=== PATIENT | female | born 2000 | race Caucasian/White ===

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

== ENCOUNTER 2021-10-03 13:08 | Emergency (ER) | payer BC, OTHER ==
[2021-10-03 14:19] VITALS: BP 104/60; PULSE 60; TEMP 98.6; BMI 17.6
== END 2021-10-03 16:23 | disposition home or self-care (01) ==
LOC: JER 13:08
DX: F41.9 Anxiety disorder, unspecified (principal)
CPT/HCPCS: 99281-25

== ENCOUNTER 2022-05-17 06:40 | Observation (INO) | payer BC, OTHER ==
[2022-05-17] MEDS ORDERED: FAMOTIDINE 20 MG/50 ML IVPB 20 MG/50 ML MG IVPB ONE ×2 (07:38→07:44)
[2022-05-17] MEDS ORDERED: SODIUM CHLORIDE 0.9% 500 ML INFUS.BAG IV ONE (07:38)
[2022-05-17] MEDS ORDERED: ONDANSETRON 4 MG/2 ML VIAL IVPUSH ONE ×2 (07:38→12:09)
[2022-05-17] MEDS ORDERED: MAG HYDROX/AL HYDROX/SIMETH 30 ML UNIT-DOSE CUP PO ONE (07:38)
[2022-05-17] MEDS ORDERED: MAG HYDROX/AL HYDROX/SIMETH 30 ML UNIT-DOSE CUP ONE (07:43)
[2022-05-17] MEDS ORDERED: ONDANSETRON 4 MG/2 ML VIAL ONE ×2 (07:44→12:41)
[2022-05-17] MEDS ORDERED: SUCRALFATE 1 GM TABLET (FP) ONE (09:16)
[2022-05-17] MEDS: SUCRALFATE 1 GM/10 ML UNIT DOSE CUPS PO SCH ×2 (09:21→22:25)
[2022-05-17 09:31] LABS: BASO % 0.3 % (0-2.0); EOS % 0.4 % (0-4.5); HEMATOCRIT 37.5 % (32.4-45.2); HEMOGLOBIN 12.4 GM/dL (10.7-15.3); LYMPH % 4.9 % (8-40); MCH 27.1 pg (25.7-33.7); MCHC 33.2 g/dl (32.0-36.0); MEAN CELL VOLUME 81.7 fl (80-96); MEAN PLT VOLUME 8.1 fl (7.5-11.1); MONO % 6.1 % (3.8-10.2); NEUT % 88.3 % (42.8-82.8); PLATELET COUNT 283 10^3/uL (134-434); RBC 4.59 M/mm3 (3.60-5.2); RDW 14.7 % (11.6-15.6); WHITE BLOOD COUNT 11.5 K/mm3 (4.0-10.0)
[2022-05-17] MEDS ORDERED: ACETAMINOPHEN 1000 MG/100 ML BAG IVPB ONE (11:03)
[2022-05-17] MEDS ORDERED: ACETAMINOPHEN INJECTION 100 ML IVPB ONE (11:04)
[2022-05-17 11:36] LABS: CALCIUM 9.7 mg/dL (8.5-10.1)
[2022-05-17 11:37] LABS: ALBUMIN 4.3 g/dl (3.4-5.0); BLOOD UREA NITROGEN 10.8 mg/dL (7-18)
[2022-05-17 11:40] LABS: CREATININE 0.7 mg/dL (0.55-1.3)
[2022-05-17 11:41] LABS: TOT PROT 7.5 g/dl (6.4-8.2)
[2022-05-17 12:43] LABS: PH,URINE 5.5 (5.0-8.0); URINE APPEARANCE CLEAR; URINE BILIRUBIN NEGATIVE (NEGATIVE); URINE COLOR YELLOW; URINE GLUCOSE (UA) NEGATIVE (NEGATIVE); URINE KETONE NEGATIVE (NEGATIVE); URINE LEUK ESTERASE NEGATIVE (NEGATIVE); URINE NITRITE NEGATIVE (NEGATIVE); URINE PROTEIN NEGATIVE (NEGATIVE); URINE UROBILINOGEN 0.2 mg/dL (0.2-1.0)
[2022-05-17] MEDS ORDERED: HALOPERIDOL LACTATE 5 MG/ML IM ONE ×2 (13:55→13:56)
[2022-05-17] MEDS ORDERED: ONDANSETRON 4 MG/2 ML VIAL IVPUSH PRN (16:07)
[2022-05-17] MEDS ORDERED: LACTATED RINGERS SOLUTION 1,000 ML IV SCH (16:15)
[2022-05-17] MEDS ORDERED: MAG HYDROX/AL HYDROX/SIMETH 30 ML UNIT-DOSE CUP PO PRN (16:50)
[2022-05-17 19:40] VITALS: RESP 18
[2022-05-17 21:01] VITALS: BMI 16.4
[2022-05-18] MEDS: ENOXAPARIN NA (PORCINE) 40 MG/0.4 ML DISP.SYRIN SQ SCH ×2 (09:56)
[2022-05-18] MEDS: SUCRALFATE 1 GM/10 ML UNIT DOSE CUPS PO SCH (09:57)
[2022-05-18] MEDS ORDERED: PANTOPRAZOLE 40 MG TABLET PO SCH (10:00)
[2022-05-18 10:41] LABS: BASO % 0.6 % (0-2.0); EOS % 5.9 % (0-4.5); HEMATOCRIT 31.5 % (32.4-45.2); HEMOGLOBIN 10.6 GM/dL (10.7-15.3); MCH 27.6 pg (25.7-33.7); MCHC 33.6 g/dl (32.0-36.0); MEAN PLT VOLUME 8.2 fl (7.5-11.1); MONO % 7.5 % (3.8-10.2); PLATELET COUNT 248 10^3/uL (134-434); RBC 3.85 M/mm3 (3.60-5.2); RDW 14.7 % (11.6-15.6); WHITE BLOOD COUNT 6.5 K/mm3 (4.0-10.0)
[2022-05-18 10:46] LABS: INR 1.11 (0.83-1.09); PROTHROMBIN TIME (PATIENT) 12.8 SEC (9.7-13.0)
[2022-05-18 10:49] LABS: ACTIVATED PTT 29.5 SECONDS (25.2-36.5)
[2022-05-18 11:13] LABS: CALCIUM 8.5 mg/dL (8.5-10.1)
[2022-05-18 11:14] LABS: BLOOD UREA NITROGEN 6.8 mg/dL (7-18); MAGNESIUM 1.9 mg/dL (1.8-2.4)
[2022-05-18 11:17] LABS: CREATININE 0.6 mg/dL (0.55-1.3)
[2022-05-18 11:18] LABS: BILIRUBIN,TOTAL 1.1 mg/dL (0.2-1); TOT PROT 5.8 g/dl (6.4-8.2)
[2022-05-18 11:20] LABS: ALBUMIN 3.2 g/dl (3.4-5.0)
[2022-05-18 14:54] VITALS: BP 113/58; PULSE 48; TEMP 97.9
== END 2022-05-18 14:54 | disposition home or self-care (01) ==
LOC: JER 06:40 → JERBED 15:38 → UNDOADMOB 15:38 → INTOOBSV 15:38 → J5S 20:44 → JERBED 20:44 → J5S 05-18 12:26
PROVIDERS: ADMIT Internal Medicine; ATTEND Internal Medicine
PROC: 3E033NZ Introduction of Analgesics, Hypnotics, Sedatives into Peripheral Vein, Percutaneous Approach (ICD-10-PCS; principal; 2022-05-18)
PROC: 3E023GC Introduction of Other Therapeutic Substance into Muscle, Percutaneous Approach (ICD-10-PCS; 2022-05-18)
PROC: 3E0337Z Introduction of Electrolytic and Water Balance Substance into Peripheral Vein, Percutaneous Approach (ICD-10-PCS; 2022-05-18)
PROC: 3E033GC Introduction of Other Therapeutic Substance into Peripheral Vein, Percutaneous Approach (ICD-10-PCS; 2022-05-18)
DX: R11.2 Nausea with vomiting, unspecified (principal); R19.7 Diarrhea, unspecified; E87.8 Other disorders of electrolyte and fluid balance, not elsewhere classified; R63.39 Other feeding difficulties; K92.9 Disease of digestive system, unspecified; Q99.8 Other specified chromosome abnormalities; Z88.8 Allergy status to other drugs, medicaments and biological substances
CPT/HCPCS: 0241U-QW; 36415; 71046-TC-FY; 74177-TC; 80053; 81003; 83690; 83735; 84100; 84703; 85025; 85610; 85730; 87086; 93005; 93010; 99285-25; G0378; Q9967

== ENCOUNTER 2024-01-31 18:57 | Emergency (ER) | payer BC, OTHER ==
[2024-01-31 19:05] VITALS: BP 98/61; PULSE 69; RESP 18; TEMP 97.8; BMI 17.7
[2024-01-31] MEDS ORDERED: ACETAMINOPHEN 500 MG TABLET (FP) PO ONE (20:02)
[2024-01-31] MEDS ORDERED: DOXYCYCLINE HYCLATE 100 MG CAPSULE PO ONE (20:11)
[2024-01-31] MEDS ORDERED: CLINDAMYCIN HCL 150 MG CAPSULE (FP) ONE (20:11)
[2024-01-31] MEDS: DOXYCYCLINE HYCLATE 100 MG CAPSULE PO ONE (20:13)
[2024-01-31] MEDS: CLINDAMYCIN HCL 300 MG CAPSULE PO ONE (20:13)
== END 2024-01-31 20:35 | disposition home or self-care (01) ==
LOC: JERFT 18:57 → JER 18:57 → JERFT 20:35
DX: S81.852A Open bite, left lower leg, initial encounter (principal); W54.0XXA Bitten by dog, initial encounter
CPT/HCPCS: 99283-25